=== PATIENT | female | born 1990 | race Two or more races ===

== ENCOUNTER 2016-05-14 16:55 | Emergency (ER) | payer OTHER ==
[2016-05-14 18:00] LABS: PH,URINE 6.5 (5.0-8.0); SPECIFIC GRAVITY 1.015 (1.001-1.030); URINE BILIRUBIN NEGATIVE (NEGATIVE); URINE BLOOD NEGATIVE (NEGATIVE); URINE GLUCOSE (UA) NEGATIVE (NEGATIVE); URINE LEUKOCYTE ESTERASE 2+ (NEGATIVE); URINE NITRITE NEGATIVE (NEGATIVE); URINE PROTEIN NEGATIVE (NEGATIVE); URINE UROBILINOGEN NORMAL (0-1 mg/dl)
[2016-05-14 18:01] LABS: URINE APPEARANCE HAZY; URINE COLOR YELLOW
[2016-05-14 18:02] LABS: HCG,QUALITATIVE URINE NEGATIVE
[2016-05-14 18:27] LABS: ABSOLUTE NEUTROPHIL COUNT 6.3 K/mm3 (1.8-7.7); BASO # 0.1 K/mm3 (0.0-0.2); BASO % 0.7 % (0.2-1.0); EOS # 0.3 (0.0-0.5); EOS % 2.5 % (0.9-2.9); HEMOGLOBIN 12.9 gm/l (12.0-16.0); IMM NEUT% 0.2 % (0-1); LYMPH # 3.3 (1.0-4.8); MEAN CELL VOLUME 90.9 fl (81.0-99.0); MEAN CORPUSCULAR HEMOGLOBIN 30.9 pg (27.0-31.0); MEAN CORPUSCULAR HGB CONC 33.9 g/dl (33.0-37.0); MEAN PLATELET VOLUME 9.4 fl (7.4-10.4); MONO # 0.7 (0.0-0.8); MONO % 6.4 % (4-12); NEUT % 59.2 % (43-75); PLATELET COUNT 267 K/mm3 (130-400); RED CELL DISTRIBUTION WIDTH 11.4 % (11.5-14.5)
[2016-05-14 18:28] LABS: URINE BACTERIA 2+; URINE RBC 0 /hpf
[2016-05-14 18:49] LABS: ALB/GLOB RATIO 1.4 (>1.0); ALBUMIN 4.2 gm/dL (3.5-5.7); CALCIUM 9.2 mg/dL (8.6-10.3)
[2016-05-14] MEDS ORDERED: CEPHALEXIN 500 MG CAPSULE ONE (19:30)
[2016-05-14] MEDS ORDERED: IBUPROFEN 600 MG TABLET ONE (19:30)
[2016-05-14] MEDS ORDERED: MORPHINE SULFATE 4 MG/ML SYRINGE ONE (19:46)
[2016-05-14] MEDS ORDERED: ONDANSETRON 4 MG/2ML 2 ML VIAL ONE (19:46)
[2016-05-14] MEDS ORDERED: DIPHENHYDRAMINE HCL 50 MG/1 ML VIAL ONE (20:51)
[2016-05-14] MEDS ORDERED: KETOROLAC TROMETHAMINE 15 MG/ML VIAL ONE (20:51)
--- NOTE | 2016-05-14 21:03 | US ---
Exam: Complete pelvic ultrasound COMPARISON: CT 01/16/2016 INDICATION: Amenorrhea and right lower quadrant pain. Findings: Transabdominal and transvaginal pelvic ultrasound was obtained. Uterus measures 7.7 x 3.9 x 5.4 cm and is homogeneous in echotexture. No myometrial masses are identified. Endometrium within normal limits measuring up to 10 mm in bilayer thickness on the transvaginal exam. A small amount of fluid is seen within the endometrial canal. Right ovary measures 2.8 x 3.5 x 2.3 cm and left ovary measures 2.2 x 2.4 x 1.6 cm. There is no cystic or solid ovarian mass. Blood flow is present within both ovaries. There is a trace amount of free fluid in the left adnexa, within physiologic range. IMPRESSION: Pelvic ultrasound is within normal limits. No findings identified to explain right lower quadrant pain. Report was uploaded to the EMR 2100 hours 05/14/2016.
[2016-05-18 08:32] LABS: CHLAMYDIA BD Negative (Negative); N.GONORRHOEAE BD Negative (Negative); SOURCE Urine (())
== END 2016-05-14 21:12 | disposition home or self-care (01) ==
LOC: ED 16:55
DX: N39.0 Urinary tract infection, site not specified (principal)
CPT/HCPCS: 87491; 87591; 81025; 85025; 87086; 80053; 81001; 76856; 76830; 96375 ×3; 99284 ×2; 96374; J1200; A9270 ×2; J2270; J1885; J2405

== ENCOUNTER 2016-07-07 14:04 | Emergency (ER) | payer OTHER ==
[2016-07-07] MEDS ORDERED: ONDANSETRON 4 MG/2ML 2 ML VIAL ONE (14:33)
[2016-07-07] MEDS ORDERED: MORPHINE SULFATE 4 MG/ML SYRINGE ONE ×2 (14:33→15:35)
[2016-07-07 15:02] LABS: ABSOLUTE NEUTROPHIL COUNT 5.2 K/mm3 (1.8-7.7); BASO # 0.1 K/mm3 (0.0-0.2); BASO % 0.7 % (0.2-1.0); EOS # 0.2 (0.0-0.5); EOS % 1.9 % (0.9-2.9); HEMATOCRIT 36.8 % (37.0-47.0); HEMOGLOBIN 12.4 gm/l (12.0-16.0); IMM NEUT% 0.1 % (0-1); LYMPH % 39.2 % (15-45); MEAN CELL VOLUME 92.7 fl (81.0-99.0); MEAN CORPUSCULAR HEMOGLOBIN 31.2 pg (27.0-31.0); MEAN CORPUSCULAR HGB CONC 33.7 g/dl (33.0-37.0); MEAN PLATELET VOLUME 9.3 fl (7.4-10.4); MONO # 0.6 (0.0-0.8); MONO % 6.3 % (4-12); NEUT % 51.8 % (43-75); PLATELET COUNT 271 K/mm3 (130-400); RED CELL DISTRIBUTION WIDTH 11.7 % (11.5-14.5)
[2016-07-07 15:02] LABS: URINE BILIRUBIN NEGATIVE (NEGATIVE); URINE BLOOD NEGATIVE (NEGATIVE); URINE GLUCOSE (UA) NEGATIVE (NEGATIVE); URINE LEUKOCYTE ESTERASE NEGATIVE (NEGATIVE); URINE NITRITE NEGATIVE (NEGATIVE); URINE PROTEIN NEGATIVE (NEGATIVE); URINE UROBILINOGEN NORMAL (0-1 mg/dl)
[2016-07-07 15:03] LABS: URINE APPEARANCE CLEAR; URINE COLOR YELLOW
[2016-07-07 15:05] LABS: HCG,QUALITATIVE URINE NEGATIVE
[2016-07-07 15:10] LABS: ALB/GLOB RATIO 1.3 (>1.0); ALBUMIN 4.1 gm/dL (3.5-5.7); CALCIUM 9.1 mg/dL (8.6-10.3)
--- NOTE | 2016-07-07 15:42 | US ---
PELVIC COMPLETE, TRANSVAGINAL ECHOGRAPHY: 07/07/2016 2:48 PM CLINICAL HISTORY: Right lower quadrant pain. Comparison: 05/14/2016 STUDY: Transabdominal and transvaginal imaging was performed with multiple grayscale, color-flow and duplex Doppler imaging. FINDINGS: Uterus: Orientation: Anteverted. Size: 8.9 x 3.5 x 4.1 cm Mass: None. Myometrium appears heterogeneous. Cervix: Normal. Endometrium: Endometrial thickness measures 9 mm Ovaries: Size: Right measures 5.4 x 4.0 x 4.6 cm; left measures 2.5 x 2.2 x 2.0 cm. Arterial and venous blood flow: right ovary: Present, left ovary: Present Mass: Complex cyst measuring 4.6 x 3.2 x 4.3 cm on the right. Adnexa: Mass: None. Cul-de-sac: No free fluid. IMPRESSION: Complex right ovarian cystic structure as above. Findings could relate to hemorrhagic cyst or endometrioma. This was not present on prior study. Follow-up imaging in 6-8 weeks' time during a different portion of the menstrual cycle would be recommended to document resolution or stability. Exam is otherwise unremarkable. Findings were called to Dr. Piper at approximately 1540 hours on 07/07/2016.
== END 2016-07-07 15:58 | disposition home or self-care (01) ==
LOC: ED 14:04
DX: N83.209 Unspecified ovarian cyst, unspecified side (principal)
CPT/HCPCS: 81025; 85025; 80053; 81003; 76856; 76830; 96375; 96376; 99284; 96374; 99283; J2270 ×2; J2405